=== PATIENT | female | born 1965 ===

== ENCOUNTER → 2021-01-21 07:49 | Outpatient (CLI) | payer SELFPAY ==
--- NOTE | ~2021-01-21 | US_ITS ---
EXAMINATION: US right upper quadrant DATE: 01/21/2021 08:15 INDICATION: Hepatitis B. Abnormal liver function tests. TECHNIQUE: Multiple grayscale and Doppler ultrasound images of the abdomen were obtained. COMPARISON: None FINDINGS: Abdominal aorta is normal in caliber. The visualized portions of the head and body of the p ancreas are normal. The liver is normal without focal lesion. No liver surface nodularity. There is n ormal flow in main portal vein. The gallbladder is normal in size. No gallstones or gallbladder wall thickening. There was no sonographic Escobedo sign. The common duct is normal and measures 3 mm. IMPRESSION: 1. Normal right upper quadrant ultrasound. Reviewed, dictated and finalized at location A.
== END ==
PROVIDERS: PCP Emergency Medicine; Visit Provider Emergency Medicine
DX: R94.5 Abnormal results of liver function studies (principal)
CPT/HCPCS: 76705